=== PATIENT | female | born 1980 | race Caucasian/White ===

== ENCOUNTER → 2020-12-21 | Outpatient (CLI) | payer BC ==
[~2020-12-21] MED LIST: CARDIZEM CD120 MG PO; ERYTHROMYCIN OP1 GM EYELF; NORFLEX 100 MG100 MG PO
== END ==
LOC: LAB 02:46
DX: R51.9 Headache, unspecified (principal); R50.9 Fever, unspecified; Z20.822 Contact with and (suspected) exposure to COVID-19
CPT/HCPCS: U0002

== ENCOUNTER 2021-03-13 22:27 | Emergency (ER) | payer BC ==
[~2021-03-13 22:27] MED LIST changes: -CARDIZEM CD120 MG PO
[2021-03-13 23:47] LABS: HEMOGLOBIN 13.9 gm/dl (12.3-15.3); RED BLOOD COUNT 4.73 M/UL (4.00-5.10); WHITE BLOOD COUNT 7.4 K/UL (4.5-11.0)
[2021-03-14 00:22] LABS: BUN/CREATININE RATIO 11 (0-10)
[2021-03-14] MEDS ORDERED: CARDIZEM CD120 MG PO (00:27)
== END 2021-03-14 00:45 | disposition home or self-care (01) ==
LOC: ER1 22:27
PROVIDERS: Family Medicine
DX: I47.1 Supraventricular tachycardia (principal)
CPT/HCPCS: 80053; 82550; 82553; 83874; 84484; 85025; 93005; 99285

== ENCOUNTER 2021-07-02 19:14 | Emergency (ER) | payer BC ==
[~2021-07-02 19:14] MED LIST changes: -PROAIR DIGIHAL90 MCG INH; -TESSALON PERLE100 MG PO
[2021-07-02] MEDS ORDERED: PROAIR DIGIHAL90 MCG INH (20:59)
[2021-07-02] MEDS ORDERED: TESSALON PERLE100 MG PO (21:04)
== END 2021-07-02 21:00 | disposition home or self-care (01) ==
LOC: ER1 19:14
DX: J20.9 Acute bronchitis, unspecified (principal); Z88.8 Allergy status to other drugs, medicaments and biological substances
CPT/HCPCS: 71046; 99284

== ENCOUNTER → 2021-07-02 | Outpatient (CLI) | payer OTHER ==
[~2021-07-02] MED LIST changes: +CARDIZEM CD120 MG PO; +PROAIR DIGIHAL90 MCG INH; +TESSALON PERLE100 MG PO
== END ==
LOC: EROP 17:04
DX: Z20.822 Contact with and (suspected) exposure to COVID-19 (principal)
CPT/HCPCS: U0002